=== PATIENT | female | born 1945 | race Caucasian/White ===

== ENCOUNTER 2018-12-17 10:02 | Observation (INO) ==
[2018-12-17] MEDS ORDERED: SODIUM CHLORIDE/NAHCO3/KCL/PEG 4,000 ML SOLN.RECON PO ONE (11:27)
--- NOTE | 2018-12-18 07:34 | General Surg History&Physical ---
Date of Encounter: 12/18/18 Time of Encounter: 07:32 Assessment and Plan (1) Constipation Current Visit: Yes Status: Chronic The assessment and plan as outlined above was discussed with the patient and/or family members who expressed understanding and agreement. All questions were answered. Discussed with patient and her caregiver about a week and half ago that she hasnt had a colonoscopy and is having issues with constipation, have discussed colonoscopy at outpatient, risks and benefits discussed and she wishes to proceed patients caregiver name Chuyita Vinson [phone] Qualifiers: Constipation type: unspecified constipation type Qualified Code(s): K59.00 - Constipation, unspecified (2) Essential hypertension Current Visit: Yes Status: Chronic The assessment and plan as outlined above was discussed with the patient and/or family members who expressed understanding and agreement. All questions were answered. continue home meds (3) Hypothyroid Current Visit: Yes Status: Chronic The assessment and plan as outlined above was discussed with the patient and/or family members who expressed understanding and agreement. All questions were answered. continue home meds Qualifiers: Hypothyroidism type: acquired Qualified Code(s): E03.9 - Hypothyroidism, unspecified History of Present Illness Chief complaint: constipation HPI: Ms. Pulliam is a 73 year old female with constipation, no previous colonoscopy. Was admitted for bowel prep yesterday/ Past Med Surg Social Fam HX - Past Medical History Source: patient Medical history: arthritis, CHF, GERD, hyperlipidemia, hypertension, thyroid disease, other (dementia) Additional medical history: Spurs on spine Psychiatric history: depression - Past Surgical History Surgical History: cholecystectomy, hip replacement Additional surgical history: left hip replacement - Social History Smoking Status: Never smoker Smokeless Tobacco Status: No Alcohol use: none Drug use: none - Family History Son Adopted: [place]: Gabriel Pulliam Age: 43 Family Member Ethnicity: Non- Living Status: Still Living Hx Family Cardiac Disorders: Yes (HTN) Hx Family Respiratory Disorders: No Hx Family Cancer: No Hx Family GI Disorders: No Hx Family Genitourinary Disorders: No Hx Family Endocrine Disorder: No Hx Family Musculoskeletal Disorders: No Hx Family Neuromuscular Disorders: No Hx Family Neurologic Disorders: No Hx Family HEENT Disorders: No Hx Family Autoimmune Disorders: No Hx Family Reproductive Disorders: No Hx Family Psychosocial Disorders: No Hx Family Medical Disorders: No Medications and Allergies Aspirin 81 mg PO DAILY 04/23/15 [History] Cetirizine HCl [Zyrtec] 10 mg PO QAM 04/23/15 [History] Hydrochlorothiazide 25 mg PO DAILY 04/23/15 [History] Levothyroxine [Synthroid] 125 mcg PO 0630 04/23/15 [History] Methocarbamol [Robaxin] 500 mg PO Q8HR 04/23/15 [History] Omeprazole [PriLOSEC] 20 mg PO DAILY 04/23/15 [History] Paroxetine [Paxil] 20 mg PO DAILY 04/23/15 [History] Simvastatin [Zocor] 40 mg PO HS 04/23/15 [History] Potassium Chloride 10 meq PO DAILY #30 tab.er.prt 04/24/15 [Rx] Meclizine [Antivert] 25 mg PO QID #20 tablet 07/19/15 [Rx] diazePAM [Valium] 2 mg PO TID #16 tablet 07/19/15 [Rx] Famotidine [Pepcid] 20 mg PO BID #30 tablet 04/01/16 [Rx] Nitrofurantoin (BID) [Macrobid] 100 mg PO BID #10 capsule 08/29/18 [Rx] Allergy/AdvReac Type Severity Reaction Status Date / Time Penicillins [PCN] Allergy Rash Verified 04/23/15 14:06 Sulfa (Sulfonamide Allergy Rash Verified 04/23/15 14:06 Antibiotics) Review of Systems All systems PM: reviewed and no additional remarkable complaints except as stated All systems PM: The remainder of the systems were reviewed and are negative General Surgery Exam Initial Vital Signs Temp Pulse Resp BP Pulse Ox 97.8 F 59 15 194/70 97 12/17/18 10:17 12/17/18 10:17 12/17/18 10:17 12/17/18 10:17 12/17/18 10:17 - General physical appearance well developed, well nourished, no distress - Eyes PERRL, normal ocular movement - ENT normal mucosa - Neck trachea midline - Respiratory normal expansion, clear to auscultation - Cardiovascular Cardiovascular exam: Present: RRR - Abdomen Abdomen general surgery: Present: bowel sounds present, soft, non tender - Integumentary Integumentary general surgery: Present: warm and dry - Neurologic Present: CN 2-12 grossly intact - Musculoskeletal Present: normal posture - Psychiatric Psychiatric general surgery: Present: A&Ox3 Results - Labs All other labs normal.
--- NOTE | 2018-12-18 08:12 | Anesthesia Evaluation PreOp ---
Date of Encounter: 12/18/18 Time of Encounter: 08:09 - Past History Planned Operation: colonoscopy Cardiac History: HTN, Hyperlipidemia Pulmonary History: Denies Any Significant HX [employer] History: Other (depression) Other Medical History: Thyroid (hypo), Other (constipation) Anesthesia History: No Prior Anesthetic Complications, Past Anesthesia : No Alcohol Use: none Drug use: none Medications and Allergies Aspirin 81 mg PO DAILY 04/23/15 [History] Cetirizine HCl [Zyrtec] 10 mg PO QAM 04/23/15 [History] Hydrochlorothiazide 25 mg PO DAILY 04/23/15 [History] Levothyroxine [Synthroid] 125 mcg PO 0630 04/23/15 [History] Methocarbamol [Robaxin] 500 mg PO Q8HR 04/23/15 [History] Omeprazole [PriLOSEC] 20 mg PO DAILY 04/23/15 [History] Paroxetine [Paxil] 20 mg PO DAILY 04/23/15 [History] Simvastatin [Zocor] 40 mg PO HS 04/23/15 [History] Potassium Chloride 10 meq PO DAILY #30 tab.er.prt 04/24/15 [Rx] Meclizine [Antivert] 25 mg PO QID #20 tablet 07/19/15 [Rx] diazePAM [Valium] 2 mg PO TID #16 tablet 07/19/15 [Rx] Famotidine [Pepcid] 20 mg PO BID #30 tablet 04/01/16 [Rx] Nitrofurantoin (BID) [Macrobid] 100 mg PO BID #10 capsule 08/29/18 [Rx] Allergy/AdvReac Type Severity Reaction Status Date / Time Penicillins [PCN] Allergy Rash Verified 04/23/15 14:06 Sulfa (Sulfonamide Allergy Rash Verified 04/23/15 14:06 Antibiotics) - Meds/Allergy Pre-op Review Medications Reviewed: Yes Allergies Reviewed: Yes Beta Blockers on Current Med List: Yes (metoprolol) If Beta Blockers taken, Date/Time (Last Dose taken): last night Anesthesia Results - Imaging EKG: report reviewed Additional studies: Impression: Pharmacologic stress ECG is negative for ischemia at level of heart rate achieved. Gated EF > 70%. Perfusion imaging was negative for ischemia or infarct. Anesthesia Exam Vital Signs/O2 Sat/Glucose, Most Recent Temp Pulse Resp BP Pulse Ox 99.2 F 60 16 209/129 97 12/18/18 07:47 12/18/18 07:47 12/18/18 07:47 12/18/18 07:47 12/18/18 07:47 Blood Glucose* 101 Weight: 45 kg NPO (# of Hours): > 8 hr - HEENT Pupil (Motor): Pupils equal Mallampati: II - [employer] LOC: Oriented - Cardiac Rhythm: Regular Murmur: None - Pulmonary Breath Sounds: bilateral Clear Respiratory Effort: Symmetrical Anesthesia Assess/Plan ASA Score: 2 Level of consciousness: Cooperative, Oriented Anesthetic Plan: MAC Monitoring Plan: Standard Monitors Recovery Plan: PACU
--- NOTE | 2018-12-18 08:43 | Discharge Summary ---
Orders not resulted at time of discharge: Pending orders 12/18/18 08:34 Surgical Pathology [PTH] Routine Date of Encounter: 12/18/18 Time of Encounter: 08:43 - Discharge Diagnosis (1) Constipation Priority: Secondary Status: Chronic Qualifiers: Constipation type: unspecified constipation type Qualified Code(s): K59.00 - Constipation, unspecified (2) Essential hypertension Priority: Primary Status: Chronic (3) Hypothyroid Priority: Primary Status: Chronic Qualifiers: Hypothyroidism type: acquired Qualified Code(s): E03.9 - Hypothyroidism, unspecified General Surgery Exam Initial Vital Signs Temp Pulse Resp BP Pulse Ox 97.8 F 59 15 194/70 97 12/17/18 10:17 12/17/18 10:17 12/17/18 10:17 12/17/18 10:17 12/17/18 10:17 - General physical appearance well developed, no distress - Eyes normal ocular movement - Respiratory normal expansion, normal respiratory effort - Cardiovascular Cardiovascular exam: Present: RRR - Abdomen Abdomen general surgery: Present: soft, non tender - Integumentary Integumentary general surgery: Present: warm and dry - Neurologic Present: CN 2-12 grossly intact - Musculoskeletal Present: normal posture - Psychiatric Psychiatric general surgery: Present: A&Ox3 - Hospital Course Hospital course: Ms. Pulliam is a 73 year old female with no previous colonoscopy and issues with constipation. She was admitted for help with bowel prep, yesterday. She tolerated her colonoscopy well, she had one small benign transverse colon polyp removed, internal hemorrhoids. She was discharged in stable condition - Time Spent with Patient Total time spent providing and/or coordinating discharge services: - Discharge Medications Prescriptions: No Action Hydrochlorothiazide 25 mg PO DAILY Levothyroxine [Synthroid] 125 mcg PO 0630 Simvastatin [Zocor] 40 mg PO HS Paroxetine [Paxil] 20 mg PO DAILY Omeprazole [PriLOSEC] 20 mg PO DAILY Methocarbamol [Robaxin] 500 mg PO Q8HR Aspirin 81 mg PO DAILY Cetirizine HCl [Zyrtec] 10 mg PO QAM Potassium Chloride 10 meq PO DAILY #30 tab.er.prt diazePAM [Valium] 2 mg PO TID #16 tablet Meclizine [Antivert] 25 mg PO QID #20 tablet Famotidine [Pepcid] 20 mg PO BID #30 tablet Nitrofurantoin (BID) [Macrobid] 100 mg PO BID #10 capsule Home Medications: Aspirin 81 mg PO DAILY 04/23/15 [History] Cetirizine HCl [Zyrtec] 10 mg PO QAM 04/23/15 [History] Hydrochlorothiazide 25 mg PO DAILY 04/23/15 [History] Levothyroxine [Synthroid] 125 mcg PO 0630 04/23/15 [History] Methocarbamol [Robaxin] 500 mg PO Q8HR 04/23/15 [History] Omeprazole [PriLOSEC] 20 mg PO DAILY 04/23/15 [History] Paroxetine [Paxil] 20 mg PO DAILY 04/23/15 [History] Simvastatin [Zocor] 40 mg PO HS 04/23/15 [History] Potassium Chloride 10 meq PO DAILY #30 tab.er.prt 04/24/15 [Rx] Meclizine [Antivert] 25 mg PO QID #20 tablet 07/19/15 [Rx] diazePAM [Valium] 2 mg PO TID #16 tablet 07/19/15 [Rx] Famotidine [Pepcid] 20 mg PO BID #30 tablet 04/01/16 [Rx] Nitrofurantoin (BID) [Macrobid] 100 mg PO BID #10 capsule 08/29/18 [Rx] Allergies/Adverse Reactions: Allergy/AdvReac Type Severity Reaction Status Date / Time Penicillins [PCN] Allergy Rash Verified 04/23/15 14:06 Sulfa (Sulfonamide Allergy Rash Verified 04/23/15 14:06 Antibiotics) Date of admission: 12/17/18 10:16 Primary care physician: Alisa Herron DO Consults: 12/17/18 10:34 Consult to Nutrition [CONS] Routine Comment: Consulting Provider: NUTRITION Reason for Dietary Consult: MST Score Discharging clinician: Chelle Oseguera Anticipated date of discharge: 12/18/18 - Patient Status Disposition: Home Health Service Condition: Good Functional capacity at discharge: independent ambulation Overall status at discharge: patient is back to baseline - Discharge Instructions Follow Up With: Alisa Herron DO [Primary Care Provider] - Additional Instructions: Dr Oseguera office will call in two weeks with pathology results from 1 polyp removed during colonoscopy, no conerns for cancer for constipation take 2 metamucil capsules by mouth daily 1 dose miralax as needed for constipation drink at least 8, 8 oz water daily - Diet and Activity Activity: as per physical therapy Diet: advance to your usual diet
[2018-12-18] MEDS ORDERED: Loratadine 10 MG TABLET PO SCH (09:00)
[2018-12-18 09:27] VITALS: BP 193/70
--- NOTE | 2018-12-18 11:38 | Anesthesia Evaluation Post Op ---
Date of Encounter: 12/18/18 Time of Encounter: 11:38 - Vital Signs Vital Signs: Vital Signs/O2 Sat/Glucose, Most Recent Temp Pulse Resp BP Pulse Ox 97.6 F 64 14 193/70 94 12/18/18 09:00 12/18/18 09:00 12/18/18 09:00 12/18/18 09:00 12/18/18 09:00 Blood Glucose* 101 - Lungs Lungs: Clear Ascult./Percussion - Airway Airway: Non-obstructed - Cardiovascular Regular Rate - Mental Status Mental Status: Alert & Oriented, Answers Appropriately - Pain Pain Scale: 0 - Nausea Vomiting Nausea Vomiting: Not Present - Hydration Hydration: NPO - Discharge PostOp Status: Transfer Patient to floor
== END 2018-12-18 12:03 | disposition home health service (06) ==
LOC: 3ANU 10:02 → SAMDAY 10:02
PROVIDERS: ADMIT Surgery; ATTEND Surgery
PROC: ENDOCBX (2018-12-18 08:15)